=== PATIENT | female | born 1995 | race Caucasian/White ===

== ENCOUNTER 2023-08-21 10:16 | Day surgery (SDC) | payer OTHER, SELFPAY ==
[2023-08-21] VITALS (12 sets, daily range): BP systolic 107–139; BP diastolic 59–93; PULSE 68–119; RESP 13–18; TEMP 36.2–36.7; O2SAT 99–100; BMI 22.6
--- NOTE | 2023-08-21 10:52 | ED_ITS ---
HPI - General Adult General Date Seen: 08/21/23 Chief complaint: Abdominal Pain Stated complaint: Abdominal pain Time Seen by Provider: 08/21/23 10:50 History of Present Illness HPI narrative: This is a 27-year-old female referred from urgent care to the ER today for right lower quadrant abdominal pain. According to urgent care she has been having right lower quadrant abdominal pain that began 2 days ago. It is 7-9/10. She has been trying to treat her pain with ibuprofen but it is only partially and temporarily affective. Bowel movements have been normal. Flatus has been normal. She has been having some bright red vaginal bleeding for a couple of days, which she assumed was her. . She has a history of UTIs and a previous kidney infection but urination has been normal lately. She uses Nexplanon for contraception. She does have a history of irregular periods. Her most recent period was actually about 2 weeks ago in the part of July. She began to have bleeding 2 nights ago. It is not as heavy use are normal. . No clots. No vaginal discharge and no concern for STI. Although this bleeding was earlier than she would have expected, given her history of regular. She was not particularly taken aback by it. She has no previous abdominal or gynecological surgeries. As far she knows she has never been before. However she had 1 episode of some heavy bleeding that may have been a miscarriage. It sounds like her workup (in [place]) was inconclusive. Workup in the urgent care showed WBC 6.27, hemoglobin 11.4, platelet count 316 Urinalysis negative Urine test positive She was referred to the ER for further evaluation and to rule out ectopic . She has history of mild asthma. Rarely uses her inhaler. No tobacco use. No alcohol. Occasional marijuana. Related Data Home Medications ?Medication ?Instructions ?Recorded ?Confirmed aripiprazole 5 mg tablet 5 mg PO DAILY 08/21/23 08/21/23 dextroamphetamine-amphetamine 20 1 tab PO BID 08/21/23 08/21/23 mg tablet etonogestrel 68 mg subdermal 1 implant subdermal ONCE 08/21/23 08/21/23 implant (Nexplanon) lamotrigine 150 mg tablet 300 mg PO BID 08/21/23 08/21/23 Allergies Allergy/AdvReac Type Severity Reaction Status Date / Time cat dander Allergy Mild hives Verified 08/21/23 10:25 dog dander Allergy Mild Hives Verified 08/21/23 10:25 dust Allergy Mild itchy nose Uncoded 08/21/23 10:25 mold Allergy Mild runny nose Uncoded 08/21/23 10:25 Exam Narrative: Exam Narrative: Constitutional: Appears well-developed and well-nourished. Alert. Conversant. Non toxic. HENT: Head: Atraumatic. Nose: Nose normal. Mouth/Throat: Oral mucosa is clear and moist. no trismus. Pharynx normal. Tonsils symmetric. No tonsillar enlargement, erythema, or exudate. Eyes: Conjunctivae normal. EOM normal. Pupils equal, round, and reactive to light. No scleral icterus. Neck: Normal range of motion. Neck supple. No tracheal deviation present. Cardiovascular: Normal rate, regular rhythm. No gallop. No friction rub. No murmur heard. Symmetric radial artery pulses Pulmonary/Chest: Effort normal. No stridor. No respiratory distress. No wheezes. No rales. No rhonchi . No tenderness. Abdominal: Soft. Bowel sounds normal. No distension. No mass. Mild right lower quad tenderness. No rebound. No guarding. No CVA tenderness. No peritoneal findings. Musculoskeletal: RUE: Normal range of motion. No tenderness. No deformity LUE: Normal range of motion. No tenderness. No deformity RLE: Normal range of motion. No edema. No tenderness. No deformity LLE: Normal range of motion. No edema. No tenderness. No deformity Neurological: Alert and oriented to person, place, and time. Normal strength. CN II-VII intact. No sensory deficit. GCS eye subscore is 4. GCS verbal subscore is 5. GCS motor subscore is 6. Normal coordination Skin: Skin is warm and dry. No rash noted. No pallor. Normal capillary refill. Psychiatric: Normal mood. Normal affect. Const: Vital Signs, click to edit/add: Vital Signs - 24 hr 08/21/23 10:18 Temperature 97.7 F Pulse Rate [Right Pulse Oximeter] 80 Respiratory Rate 16 Blood Pressure [Ri ght Upper Arm] 139/93 H Pulse Oximetry 100 Oxygen Delivery Me thod Room Air Course Course ED Course: I was updated by the director of community life that there does appear to be a ruptured ectopic . There is a complex structure in the right fallopian tube with surrounding free fluid suspicious for blood. I contacted the high school math teacher, Dr. Montoya. She graciously came exudates lead to the ER to evaluate depletion. While this was occurring we started process for ranging admission to the OR Reevaluation(s) Reevaluation #1: [id number] and boyfriend updated. Blood pressure still stable. Pain mild intolerable E controlled. Has been NPO since 7:00 a.m.. While I was updating them, Dr. Montoya arrived to the ER and came to the patient's bedside. Reevaluation #2: [id number] phone from radiology, Dr Arriaga. 3cm complex mass suspicious for ectopic. Vital Signs Vital signs: Initial Vital Signs Temperature 97.7 F 08/21/23 10:18 Temperature Source Temporal Artery Scan 08/21/23 10:18 Pulse Rate 80 08/21/23 10:18 Respiratory Rate 16 08/21/23 10:18 Blood Pressure 139/93 H 08/21/23 10:18 Blood Pressure Mean 108 H 08/21/23 10:18 Blood Pressure Position Sitting 08/21/23 10:18 Pulse Oximetry 100 08/21/23 10:18 Oxygen Delivery Method Room Air 08/21/23 10:18 Vital Signs Temperature 97.7 F 08/21/23 10:18 Pulse Rate 80 08/21/23 10:18 Respiratory Rate 16 08/21/23 10:18 Blood Pressure 139/93 H 08/21/23 10:18 Pulse Oximetry 100 08/21/23 10:18 Oxygen Delivery Method Room Air 08/21/23 10:18 Temperature 97.7 F 08/21/23 10:18 Pulse Rate 80 08/21/23 10:18 Respiratory Rate 16 08/21/23 10:18 Blood Pressure 139/93 H 08/21/23 10:18 Pulse Oximetry 100 08/21/23 10:18 Oxygen Delivery Method Room Air 08/21/23 10:18 Medical Decision Making MDM Narrative Medical decision making narrative: Very pleasant, 27-year-old female who is now . Last normal period was about 2 weeks ago when she started having vaginal bleeding and right lower quadrant abdominal pain ongoing for 2 days. She is based on urine blood test from urgent care he and confirmed with serum test here in the ER. Are her blood pressure is stable. Hemoglobin mildly low at 11.6. This is stable from this morning in Urgent Care, but there are no previous hemoglobin measurements for comparison. She normally gets primary care in [place]. Pelvic ultrasound was obtained and does show evidence for a complex cystic structure in the right adnexa with surrounding free fluid. In this setting very suspicious for ectopic . Consultation with Ob was undertaken she came to the ER to evaluate the patient and will take the patient to the OR for laparoscopy. 0 She has mild asthma but rarely needs to use an inhaler. Lungs are clear today. She has been NPO since 7:00 a.m.. No history of heart disease. At this point with reasonable clinical confidence I think the patient is safe to undergo anesthesia especially in the setting of a potentially emergent life-threatening condition. Although hemodynamics are currently stable , ectopic with rupture, she is at risk for decompensation if surgery is delayed. Lab Data Labs: Lab Results 08/21/23 Range/Units 11:10 WBC 6.35 (4.50-11.00) K/uL RBC 3.87 L (4.00-5.20) m/uL Hgb 11.6 L (12.0-16.0) gm/dL Hct 36.1 (33.0-51.0) % MCV 93 (80-100) fL MCH 30 (26-34) pg MCHC 32 (32-36) gm/dL RDW Coeff of Alice 11.8 (11.5-15.5) % Plt Count 356 (140-440) K/uL Neut % (Auto) 73.4 H (42.0-72.0) % Lymph % (Auto) 20.5 (20-44) % [place] % (Auto) 4.6 (0.0-11.0) % Eos % (Auto) 0.9 (0.0-7.0) % Baso % (Auto) 0.6 (0.0-3.0) % Neut # (Auto) 4.70 (1.7-7.0) K/uL Lymph # (Auto) 1.30 (0.90-2.90) K/uL [place] # (Auto) 0.30 (0.00-0.90) K/UL Eos # (Auto) 0.06 (0.00-0.50) K/uL Baso # (Auto) 0.04 (0.00-0.30) K/uL Abs Immat Gran (auto) 0.00 (0.00-0.30) K/uL Imm/Tot Granulo (auto) 0.0 % Sodium 139 (135-149) mmol/L Potassium 4.4 (3.6-5.1) mmol/L Chloride 106 (96-114) mmol/L Carbon Dioxide 25 (20-32) mmol/L Anion Gap 8 (7-15) mEq/L BUN 10 (5-24) mg/dL Creatinine 0.6 (0.5-1.5) mg/dL Estimated Creat Clear 112.95 Estimated GFR 126 ml/min Glucose 108 (60-115) mg/dL Calcium 8.6 (8.4-10.6) mg/dL HCG, Qual Positive (Negative) Discharge Plan Discharge Clinical Impression: Ectopic , tubal Patient Disposition: XFER to OR Follow Up/Referrals: Provider,Not a Local [Primary Care Provider] -
--- NOTE | 2023-08-21 10:56 | US_ITS ---
Patient: LASHAE ROBERTO Facility:?[facility] Patient ID:?[id number] Site Patient ID:?[id number]. Site :?[id number] Study:?US-OB Pelvis -08/21/2023 11:55:36 AM Ordering Physician:Minerva Final Report: INDICATION: Pain and vaginal bleeding in the setting of . COMPARISON: None available. TECHNIQUE: Endovaginal grayscale and color doppler pelvic ultrasound. FINDINGS: Right adnexa: Right adnexal extraovarian mixed echotexture predominantly solid mass with small cystic elements interposed between the uterus and ovaries measuring up to 3.1 cm in greatest dimension. No significant surrounding hyperemia on color Doppler. LMP: Not provided. Uterus: Measures 3.7 x 3.5 x 7.8cm. Unremarkable cervix. Please note that US is insensitive for detection of epithelial lesions of the cervix, compared to physical examination. Endometrial stripe: Measures 2mm. Uniform in thickness. Small volume intrauterine anechoic free fluid. Right Ovary: Measures 2.7 x 2.7 x 3.7cm. Morphologically normal. Spectral Doppler demonstrates normalarterial and venousblood flow. Left Ovary: Measures 2.5 x 1.8 x 3.4cm. Morphologically normal. Spectral Doppler demonstrates normalarterial and venousblood flow. Pelvic fluid: Moderate volume anechoic pelvic free fluid in the rectouterine recess and adjacent to the uterine fundus. IMPRESSION: 1. No intrauterine . 2. Extraovarian right adnexal 3 cm complex mass interposed between the uterus and ovary suspicious for an ectopic associated with moderate volume anechoic free pelvic fluid. OB consultation is recommended. This was discussed with Dr. Quiroz at 12:12 p.m. GRIEVANCE AND APPEALS COORDINATOR. Dictated by Samuel Mares MD @ 08/21/2023 12:12:52 PM Signed by:?aSmuel Mares MD @08/21/2023 12:12:52 PM (Electronic Signature)
[2023-08-21 11:24] LABS: Basophils Absolute Auto 0.04 K/uL (0.00-0.30); Basophils Percent Auto 0.6 % (0.0-3.0); Eosinophils Absolute Auto 0.06 K/uL (0.00-0.50); Eosinophils Percent Auto 0.9 % (0.0-7.0); Hematocrit 36.1 % (33.0-51.0); Hemoglobin* 11.6 gm/dL (12.0-16.0); Lymphocytes Percent Auto 20.5 % (20-44); Mean Corpuscular HGB Conc 32 gm/dL (32-36); Mean Corpuscular Hemoglobin 30 pg (26-34); Mean Corpuscular Volume 93 fL (80-100); Monocytes Percent Auto 4.6 % (0.0-11.0); Neutrophils Percent Auto 73.4 % (42.0-72.0); Platelet Count* 356 K/uL (140-440); RDW Coefficient of Variation % 11.8 % (11.5-15.5); Red Blood Count 3.87 m/uL (4.00-5.20); White Blood Count* 6.35 K/uL (4.50-11.00)
[2023-08-21 11:27] LABS: Slide Review Reflex No
[2023-08-21 11:42] LABS: HCG Qualitative Serum* Positive (Negative)
[2023-08-21 11:45] LABS: Chloride* 106 mmol/L (96-114); Potassium* 4.4 mmol/L (3.6-5.1); Sodium* 139 mmol/L (135-149)
[2023-08-21 11:48] LABS: Anion Gap 8 mEq/L (7-15); Blood Urea Nitrogen* 10 mg/dL (5-24); Carbon Dioxide* 25 mmol/L (20-32); Creatinine* 0.6 mg/dL (0.5-1.5); Est. Creatinine Clearance* 112.95; Estimated Glomerular Filt Rate 126 ml/min; Glucose* 108 mg/dL (60-115)
[2023-08-21 11:49] LABS: Calcium* 8.6 mg/dL (8.4-10.6)
--- NOTE | 2023-08-21 12:11 | PM.GYNCN1 ---
TOOL DRESSER - CN: [facility] Data of Consult Time Seen by Provider: 12:00 Date Seen: 08/21/23 Consult date: 08/21/23 Primary Care Provider: Not a Local Provider Consult Narrative Reason for consult: abdominal pain Narrative: Muriel Berger is a 27yo seen in consultation for suspected rupture ectopic in the ED. Gynecologic history is notable for contraception via Nexplanon (placed December 2020). Muriel notes onset of right lower quadrant abdominal pain and small volume vaginal bleeding on 08/19/23. Her pain has persisted and worsened through time, prompting urgent care evaluation today. There, she had a positive urine test and was recommended to present to the emergency department. On arrival she affirmed the above history. Pelvic ultrasound was obtained and is significant for suspected right tubal ectopic with moderate free abdominal fluid, likely representing ruptured ectopic . Stat Speech Teacher consult was requested. Muriel notes ongoing right lower quadrant abdominal pain. She denies any chest pain, dyspnea, dizziness, lightheadedness. She has had intermittent nausea without vomiting due to pain. Her ectopic risk factors include Nexplanon in situ and history of chlamydia (treated several years ago). Past medical history: Asthma, adult disorder (on aripiprazole, lamotrigine and Adderall) Past surgical history: No prior abdominal surgeries Social history: Cis gender, heterosexual female. Seen alongside her boyfriend, Valente. She does not use tobacco products, does smoke THC recreationally. No significant alcohol intake, no other illicit drug use. cc:: CC: Meds Home Medications and Allergies Home Medications ?Medication ?Instructions ?Recorded ?Confirmed ?Type aripiprazole 5 mg tablet 5 mg PO DAILY 08/21/23 08/21/23 History dextroamphetamine-amphetamine 20 1 tab PO BID 08/21/23 08/21/23 History mg tablet etonogestrel 68 mg subdermal 1 implant subdermal ONCE 08/21/23 08/21/23 History implant (Nexplanon) lamotrigine 150 mg tablet 300 mg PO BID 08/21/23 08/21/23 History Allergies Allergy/AdvReac Type Severity Reaction Status Date / Time cat dander Allergy Mild hives Verified 08/21/23 10:25 dog dander Allergy Mild Hives Verified 08/21/23 10:25 dust Allergy Mild itchy nose Uncoded 08/21/23 10:25 mold Allergy Mild runny nose Uncoded 08/21/23 10:25 TOOL DRESSER - Exam Physical Exam: Vital signs: Temp Pulse Resp BP Pulse Ox O2 Del Method 97.7 F 80 16 139/93 H 100 Room Air 08/21/23 10:18 08/21/23 10:18 08/21/23 10:18 08/21/23 10:18 08/21/23 10:18 08/21/23 10:18 Narrative: General: Alert and oriented, in no acute distress Abdomen: Tender to palpation in the bilateral lower quadrants, right greater than left. Slight involuntary guarding, no rebound. No distension. Pelvic: Deferred given planned surgery. Extremities: Nexplanon is easily palpable in the left upper extremity. TOOL DRESSER - Results Labs Labs: Short CBC 08/21/23 Range/Units 11:10 WBC 6.35 (4.50-11.00) K/uL Hgb 11.6 L (12.0-16.0) gm/dL Hct 36.1 (33.0-51.0) % Plt Count 356 (140-440) K/uL BMP 08/21/23 11:10 Sodium 139 Potassium 4.4 Chloride 106 Carbon Dioxide 25 BUN 10 Creatinine 0.6 Glucose 108 Calcium 8.6 Assessment and Plan Assessment and plan (1) Ectopic , tubal: Status: Acute Plan Ms. Berger is a 27yo seen for suspected ruptured ectopic in the ED. She presented to urgent care with RLQ pain and vaginal bleeding, where UPT was positive. She then came to the ED, where pelvic US reveals suspected right tubal ectopic with likely hemoperitoneum. She is hemodynamically stable and in no acute distress. Hemoglobin in 11.6 with T/S pending. We discussed her clinical course is highly concerning for ruptured ectopic . Reviewed her risk factors for this include Nexplanon in Situ and history of chlamydial infection. Recommend we proceed with diagnostic laparoscopy and proceed as indicated in this setting of suspected ruptured ectopic . Assuming my intraoperative findings confirm ruptured ectopic , we would proceed with unilateral salpingectomy and evacuation of hemoperitoneum. We discussed that I will assess her contralateral fallopian tube, where no adverse fertility outcomes have been described in the setting of a normally functioning contralateral fallopian tube. That said, it is possible that tubal disease may have contributed to this ectopic with a history of chlamydia. She inquired about disposition of the Nexplanon, where this is up-to-date (placed December of 2020) and has otherwise been very well tolerated. I explained that it is extremely unlikely to get with Nexplanon in place but that her relative risk of ectopic is increased. After discussion, we mutually agreed to maintain the Nexplanon but I do strongly recommend she proceed with routine removal/reinsertion at 3 years. We discussed that newer literature suggests contraceptive benefit may be up to 5 years, but I would certainly be cautious to extend Nexplanon given her history. We discussed risks of surgery including bleeding, infection, damage to surrounding structures and medical complications of surgery/anesthesia (VTE, heart attack, stroke, ). Her only significant medical problems include mental health disorder and asthma. 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 Written consent obtained. NPO since 729. Plan to see proceed to the OR now. - Proceed with diagnostic laparoscopy and is proceed as indicated, likely including right salpingectomy and evacuation of hemoperitoneum - No perioperative antibiotics indicated - Preop hemoglobin 11.6, type and screen pending. Repeat labs PRN. Patient would consent to blood transfusion if medically necessary. - Discussed postoperative restrictions and expectations. Anticipate dismissal to home later today. Plan 2 week postop visit with me in clinic.
--- NOTE | 2023-08-21 12:22 | W.ANESCHARGE ---
Anesthesia Charges Start Date/Time Anesthesia Start Date: 08/21/23 Anesthesia Start Time: 12:28 Stop Date/Time Anesthesia Stop Date: 08/21/23 Anesthesia Stop Time: 13:56 Summary Emergency: MDA
[2023-08-21] MEDS: LACTATED RINGERS 1000 ML 1,000 ML 125 ML IV (12:28)
[2023-08-21] MEDS: BUPIVACAINE 0.25 %/EPI 1:200K 30 ml INJECTION (13:33)
--- NOTE | 2023-08-21 13:51 | W.PM.GYNPROC ---
Procedure Note Time Seen by Provider: 13:40 Date of procedure: 08/21/23 Will [facility] bill your pro fee for this procedure?: Yes Pre-op diagnosis: Right tubal ectopic Procedure: Laparoscopic right salpingectomy, evacuation of hemoperitoneum Anesthesia: GETA Complications: None Surgeon: Kuldip Montoya MD Estimated blood loss (mL): 150 IV fluids (mL): 900 Urine Output (mL): 250 Pathology: specimen obtained, sent to pathology Condition: stable Disposition: same day Findings: Right tubal ectopic with rupture Small volume hemoperitoneum Unremarkable uterus, left fallopian tube and bilateral ovaries Abdominal survey notable for thin adhesive disease between the sigmoid colon and left pelvic sidewall in addition to the cecum/appendix and right anterior abdominal Procedure Description: The patient was brought to the operating room and after the induction of general anesthesia, placed in the supine position. After sterile prep and drape, a 10-mm periumbilical skin incision was made and carried through the fascia using an open laparoscopic technique. A 10-mm Alex trocar was placed and pneumoperitoneum created. Small hemoperitoneum was apparent. We visually inspected the pelvis and abdomen which revealed right tubal ectopic with evidence of rupture and organized clot, but no active bleeding. Under direct vision, two left 5-mm paramedian ports were placed. I started by evacuating the pelvic component of the hemoperitoneum to allow access to the adnexa. The right fallopian tube was inspected in its entirety, with dilation and rupture consistent with known ectopic in the ampullar portion. The fimbriated end was elevated and Ligasure was utilized to transect the mesosalpinx. The IP was noted to be well lateral to the intended course of transection. Care was taken to not disrupt any ovarian tissue nor disrupt the tubal ectopic . The mesosalpinx was sequentially ligated and transected to the uterine cornua, at which time the tube was transected and ligated. Excellent hemostasis was noted. Specimen was placed in an Endobag and removed through Edwards port. The left fallopian tube was inspected and noted to be normal. The uterus and both ovaries were noted to be visually unremarkable. Remaining hemoperitoneum was evacuated from the pelvis and upper abdomen. Excellent hemostasis was noted throughout. The procedure was terminated. All ports removed. The periumbilical fascia was closed with running 1-0 Vicryl. All skin incisions were closed with subcuticular 3-0 Monocryl. Estimated blood loss was 150mL, which consisted entirely of existing hemoperitoneum. The patient tolerated the surgery well and was taken to recovery in good condition. Surgical debrief completed. Specimen is right fallopian tube sent for pathology. UOP 250mL, connelly removed at end of case.
--- NOTE | 2023-08-21 14:17 | P.ANES_ITS ---
Anesthesia Charges Start Date/Time Anesthesia Start Date: 08/21/23 Anesthesia Start Time: 12:28 Stop Date/Time Anesthesia Stop Date: 08/21/23 Anesthesia Stop Time: 13:56 Summary Emergency: RISK CONSULTING TREASURY DIRECTOR
[2023-08-21] MEDS: LACTATED RINGERS 1000 ML 1,000 ML 30 ML IV (14:18)
--- NOTE | 2023-08-21 15:11 | SUR.PHASEII ---
IV removed from L arm, no issues noted. pt discharged at 1510 via w/c
== END 2023-08-21 15:10 | disposition home or self-care (01) ==
LOC: ED 12:02 → OR 12:28
PROVIDERS: Emergency Provider Emergency Medicine; Visit Provider Obstetrics & Gynecology
PROC: (CPT 59150; principal; 2023-08-21 12:30)
DX: O00.101 Right tubal pregnancy without intrauterine pregnancy (principal); K66.1 Hemoperitoneum
CPT/HCPCS: 59151; 49322; 00840; 36415; 76817; 80048; 84703; 85025; 86850; 86900; 86901; 88305; 99140; 99283; 99284; 99285; J0330; J1885; J2250; J2704; J2710; J3010; J7120